=== PATIENT | male | born 1950 | race Caucasian/White ===

== ENCOUNTER → 2020-01-06 | Outpatient (CLI) | payer OTHER | LOC: LAB 13:53 | PROVIDERS: ATTEND Family Medicine | DX: R06.02 Shortness of breath (principal); Z20.828 Contact with and (suspected) exposure to other viral communicable diseases ==

== ENCOUNTER → 2020-01-26 | Outpatient (CLI) | payer OTHER | LOC: LAB 12:42 | PROVIDERS: ATTEND Family Medicine | DX: U07.1 COVID-19 (principal) ==